=== PATIENT | female | born 1995 | race Caucasian/White ===

== ENCOUNTER 2019-06-02 10:01 | Emergency (ER) | payer OTHER ==
[~2019-06-02] VITALS: Ht 152.4 cm; Wt 39.9 kg
[2019-06-02 10:15] VITALS: Ht 152.4 cm; Wt 39.9 kg
[2019-06-02 12:24] VITALS: BP 112/67
== END 2019-06-02 12:24 | disposition home or self-care (01) ==
LOC: ED 10:01
DX: S05.12XA Contusion of eyeball and orbital tissues, left eye, initial encounter (principal); H11.32 Conjunctival hemorrhage, left eye; Y04.0XXA Assault by unarmed brawl or fight, initial encounter; Y93.89 Activity, other specified; Y92.89 Other specified places as the place of occurrence of the external cause; Y99.8 Other external cause status

== ENCOUNTER 2020-07-17 14:09 | Emergency (ER) | payer OTHER ==
[~2020-07-17] VITALS: Ht 152.4 cm; Wt 48.1 kg
[2020-07-17 14:19] VITALS: Ht 152.4 cm; Wt 48.1 kg
[2020-07-17 16:35] VITALS: BP 124/74
== END 2020-07-17 16:35 | disposition home or self-care (01) ==
LOC: ED 14:09
DX: S46.912A Strain of unspecified muscle, fascia and tendon at shoulder and upper arm level, left arm, initial encounter (principal); J45.909 Unspecified asthma, uncomplicated; X58.XXXA Exposure to other specified factors, initial encounter; Y93.89 Activity, other specified; Y92.89 Other specified places as the place of occurrence of the external cause; Y99.8 Other external cause status